=== PATIENT | female | born 1980 | race Caucasian/White ===

== ENCOUNTER 2020-10-03 18:40 | Emergency (ER) | payer MEDICARE, MEDICAID, SELFPAY ==
[2020-10-03 19:55] VITALS: BP 119/71; PULSE 70; RESP 16; TEMP 37.1; O2SAT 97; BMI 31.2
--- NOTE | 2020-10-03 20:08 | ED_ITS ---
HPI - Wound/Laceration General Chief Complaint: Wound/Laceration Stated Complaint: lip injury Time Seen by Provider: 10/03/20 20:08 Source: patient Mode of arrival: ambulatory Limitations: no limitations History of Present Illness HPI narrative: States she reached up in a cabinet and in attempt to prevent a cup from falling she has only jumped and bit herself in the leftlower inner lip causing a small laceration. She otherwise denies any other injury or fall. Onset (ago): minute(s) Location: face Place: home Patient tetanus UTD: Yes Context: accidental Associated symptoms: none Treatments prior to arrival: cold therapy Related Data Allergies Allergy/AdvReac Type Severity Reaction Status Date / Time codeine [Codeine] Allergy Unknown CHEST PAIN Verified 10/03/20 19:54 ibuprofen [From Motrin] Allergy Unknown MIGRAINES Verified 10/03/20 19:54 Motrin Allergy Unknown Swelling Uncoded 10/03/20 19:54 selfish Allergy Unknown Swelling Uncoded 10/03/20 19:54 SHELLFISH Allergy Unknown HIVES Uncoded 08/14/20 16:24 Review of Systems Review of Systems: Constitutional: No Weight loss, No Fever, No Chills, No Night Sweats, No Fatigue, No Malaise ENT/Mouth: No Hearing loss, No Ear Pain, No Nasal Congestion, No Sinus Pain, No Hoarseness, No sore throat, No Rhinorrhea, No Swallowing Difficulty Eyes: No Eye Pain, No Swelling, No Redness, No Foreign Body, No Discharge, No Vision Changes Musculoskeletal: No joint pain, No Myalgias, No Joint Swelling Skin: No Skin Lesions, No rash Neuro: No Weakness, No Numbness, No Paresthesias, No Loss of Consciousness, No Dizziness, No Headache Psych: No Anxiety/Panic, No Depression Yes all other systems are reviewed and are negative PMFSH Past Medical History Attestation statement: The following information was validated with the patient. Medical History (Updated 10/03/20 @ 20:13 by Luke Arnold NP) delivery delivered Chiari malformation Surgical History (Updated 10/03/20 @ 20:01 by Brooklyn Waldrop) History of appendectomy Hx of tonsillectomy Social History Social History Smoking Status: Never smoker Use of substances other than those prescribed or required for medical reasons: No Advance Directives: No Advance Directives Information Provided: Yes Physical Exam Vital Signs: Vital Signs: Last Vital Signs Temp 98.7 F 10/03/20 19:55 Pulse 70 10/03/20 19:55 Resp 16 10/03/20 19:55 BP 119/71 10/03/20 19:55 Pulse Ox 97 10/03/20 19:55 Body Mass Index 31.2 Reviewed Const: General: cooperative and healthy appearing; No acute distress or intoxicated appearing Nutritional Appearance: average body habitus Orientation/consciousness: patient oriented x3 HENMT: Head: Yes normal to inspection Ears: hearing grossly normal bilatera lly Nose image: 1. Less than 0.5 centimetre superficial laceration. Does not cross the vermilion border. Mostly just inside the lip barely visible. No intra oral/dental injury. Eyes: General: appearance normal, both eyes and all related structures Visual Rust: normal visual rust by confrontation Neck: Neck: Yes normal visual inspection Chest: Chest palpation & inspection: normal inspection of the chest Resp: Effort & Inspection: normal respiratory effort Skin: General skin exam: no rashes or lesions noted Neuro: General: patient oriented x3 Extrem: General: Yes normal to inspection Course Course Course Narrative: Superficial laceration to the inner lower lip on the left side. Given small and superficial no need for repair. Patient agreeable home care/return/follow-up instructions provided. Stable for discharge. Discharge Plan Discharge Clinical Impression: Laceration Patient Disposition: Home, Self-Care Instructions: Facial Laceration (ED) Additional Instructions: This is a very small superficial laceration to the inner lip this will heal by self. No need for sutures at this time. Home instructions reviewed Return if any concerns or worsening symptoms Thank you Referrals: Shonda Alonso DO [Primary Care Provider] - 1 week
== END 2020-10-03 20:20 | disposition home or self-care (01) ==
PROVIDERS: Emergency Provider Internal Medicine; PCP Internal Medicine
DX: S01.511A Laceration without foreign body of lip, initial encounter (principal); K13.79 Other lesions of oral mucosa; W26.8XXA Contact with other sharp object(s), not elsewhere classified, initial encounter; Y93.9 Activity, unspecified; Y92.009 Unspecified place in unspecified non-institutional (private) residence as the place of occurrence of the external cause; Y99.9 Unspecified external cause status
CPT/HCPCS: 99283